=== PATIENT | male | born 1970 | race Caucasian/White ===

== ENCOUNTER 2018-08-06 15:02 | Emergency (ER) | payer OTHER, BC ==
[2018-08-06 15:23] VITALS: TEMP 97.8
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
[2018-08-06 17:28] VITALS: BP 128/82; PULSE 77; RESP 18
[2018-08-08 13:37] VITALS: O2SAT 98
== END 2018-08-06 17:28 | disposition home or self-care (01) ==
LOC: H.ER 15:02
DX: M54.9 Dorsalgia, unspecified (principal); M54.2 Cervicalgia; M79.10 Myalgia, unspecified site; V49.40XA Driver injured in collision with unspecified motor vehicles in traffic accident, initial encounter; F17.210 Nicotine dependence, cigarettes, uncomplicated
CPT/HCPCS: 96372; 99283; J1885